=== PATIENT | female | born 1940 | race Hispanic/Latino ===

== ENCOUNTER 2017-08-13 17:43 | Emergency (ER) | payer OTHER, MEDICARE ==
[2017-08-13] MEDS ORDERED: ONDANSETRON HCL MDV 20ML 2 MG/ML VIAL ONE (18:26)
[2017-08-13] MEDS ORDERED: SODIUM CHLORIDE 0.9% 1000ML 1,000 ML IV ONE (18:27)
[2017-08-13] MEDS ORDERED: KETOROLAC TROMETHAMINE 15MG/ML ONE (18:27)
[2017-08-13 18:29] LABS: BASOPHILS % (AUTO) 0.4 % (0.0-5.0); EOSINOPHILS % (AUTO) 1.5 % (0.0-8.0); HEMATOCRIT 40.1 % (36-48); LYMPHOCYTES % (AUTO) 24.1 % (21.0-51.0); MEAN CORPUSCULAR HEMOGLOBIN 32.9 pg (27.0-33.0); MEAN CORPUSCULAR HGB CONC 34.4 g/dL (32.0-36.0); MEAN CORPUSCULAR VOLUME 95.8 fL (79-99); MONOCYTES % (AUTO) 8.8 % (3.0-13.0); NEUTROPHILS % (AUTO) 65.2 % (40.0-77.0); PLATELET COUNT (AUTO) 167 K/uL (130-400); RED BLOOD CELL COUNT(AUTO) 4.19 MIL/uL (4.00-5.50); WHITE BLOOD COUNT (AUTO) 9.4 K/uL (4.8-10.8)
[2017-08-13 18:40] LABS: CREATININE 0.8 mg/dL (0.5-1.5); POTASSIUM 3.7 mmol/L (3.5-5.1)
[2017-08-13 18:41] LABS: APPEARANCE,URINE Clear (CLEAR); BILIRUBIN,URINE Negative (NEGATIVE); COLOR,URINE Yellow (YELLOW); GLUCOSE, URINE (UA) Negative (NEGATIVE); KETONES,URINE Negative (NEGATIVE); LEUKOCYTE ESTERASE ,URINE Small (NEGATIVE); NITRATE,URINE Negative (NEGATIVE); OCCULT BLOOD,URINE Moderate (NEGATIVE); PROTEIN,URINE Negative (NEGATIVE)
[2017-08-13 18:44] LABS: ALBUMIN 3.6 g/dL (3.5-5.0); BILIRUBIN,DIRECT 0.1 mg/dL (0.0-0.3); BILIRUBIN,TOTAL 0.4 mg/dL (0.2-1.0); TOTAL PROTEIN, SERUM 7.2 g/dL (6.0-8.3)
[2017-08-13 19:01] LABS: INR 0.98 (0.85-1.15); PARTIAL THROMBOPLASTIN TIME 24.9 SEC (26.3-35.5); PROTHROMBIN TIME 10.3 SEC (9.6-11.6)
[2017-08-13 19:36] LABS: BACTERIA,URINE Rare /HPF (None Seen); SQUAMOUS EPITHELIAL CELL,UR Rare /HPF (0-2)
== END 2017-08-13 21:32 | disposition home or self-care (01) ==
LOC: EDH 17:43
DX: R10.13 Epigastric pain (principal); R63.0 Anorexia; R11.0 Nausea
CPT/HCPCS: 36415; 74176; 80048; 80076; 81001; 82550; 83690; 84484; 85025; 85610; 85730; 93005; 96361; 96374; 96375; 99285; J1885; J7030

== ENCOUNTER → 2020-01-29 | Outpatient (CLI) | payer OTHER, MEDICARE ==
--- NOTE | 2020-01-29 11:45 | NUR ---
U/S GD RT BREAST CYST ASPIRATION PROCEDURE PERFORMED BY DR Rand ESPINOZA. PUNCTURE SITE RT BREAST AND PATIENT TOLERATED PROCEDURE WELL. SPECIMEN COLLECTED AND SENT TO LAB. END OF PROCEDURE AT 1110. BIOPSY NEEDLE REMOVED AND DRESSING APPLIED. NO BLEEDING NOTED. DISCHARGE INSTRUCTIONS GIVEN TO PATIENT AND VERBALIZED UNDERSTANDING. DISCHARGED VIA AMBULATION AT 1145. AAO X3 WITH NO C/O PAIN. U/S OF LT BREAST DONE AND PENDING RESULTS.
== END | disposition home or self-care (01) ==
LOC: RAH 08:51
PROVIDERS: ATTEND Internal Medicine
DX: N60.01 Solitary cyst of right breast (principal); N63.10 Unspecified lump in the right breast, unspecified quadrant; N60.02 Solitary cyst of left breast; N63.20 Unspecified lump in the left breast, unspecified quadrant; K21.9 Gastro-esophageal reflux disease without esophagitis; J30.9 Allergic rhinitis, unspecified; G40.909 Epilepsy, unspecified, not intractable, without status epilepticus; M81.0 Age-related osteoporosis without current pathological fracture; Z86.19 Personal history of other infectious and parasitic diseases; Z90.49 Acquired absence of other specified parts of digestive tract; Z98.42 Cataract extraction status, left eye; Z98.41 Cataract extraction status, right eye
CPT/HCPCS: 19000; 76641

== ENCOUNTER → 2020-10-08 | Outpatient (CLI) | payer OTHER, MEDICARE | END | disposition home or self-care (01) | LOC: RAH 13:32 | PROVIDERS: ATTEND Student in an Organized Health Care Education/Training Program | DX: R92.2 Inconclusive mammogram (principal); N60.01 Solitary cyst of right breast; N60.02 Solitary cyst of left breast; N63.10 Unspecified lump in the right breast, unspecified quadrant; N63.20 Unspecified lump in the left breast, unspecified quadrant ==

== ENCOUNTER → 2020-12-02 | Outpatient (CLI) | payer OTHER, MEDICARE | END | disposition home or self-care (01) | LOC: RAH 11:13 | PROVIDERS: ATTEND Student in an Organized Health Care Education/Training Program | DX: N60.01 Solitary cyst of right breast (principal) | CPT/HCPCS: 76641 ==

== ENCOUNTER → 2021-01-27 | Outpatient (CLI) | payer OTHER, MEDICARE ==
[2021-01-27 10:36] LABS: INR 1.03 (0.85-1.15); PROTHROMBIN TIME 11.2 SEC (9.6-11.6)
[2021-01-27 10:37] LABS: PARTIAL THROMBOPLASTIN TIME 26.4 SEC (26.3-35.5)
== END | disposition home or self-care (01) ==
LOC: RAH 09:32
PROVIDERS: ATTEND Student in an Organized Health Care Education/Training Program
DX: N63.15 Unspecified lump in the right breast, overlapping quadrants (principal); Z20.822 Contact with and (suspected) exposure to COVID-19; Z79.01 Long term (current) use of anticoagulants
CPT/HCPCS: 19083; 36415; 85610; 85730; A4215 ×3

== ENCOUNTER → 2021-02-10 | Outpatient (CLI) | payer OTHER, MEDICARE | END | disposition home or self-care (01) | LOC: RAH 12:23 | PROVIDERS: ATTEND Nurse Practitioner Family | DX: M47.812 Spondylosis without myelopathy or radiculopathy, cervical region (principal) | CPT/HCPCS: 72040 ==

== ENCOUNTER → 2021-08-25 | Outpatient (CLI) | payer OTHER, MEDICARE | LOC: RAH 09:06 | PROVIDERS: ATTEND Student in an Organized Health Care Education/Training Program | DX: D48.61 Neoplasm of uncertain behavior of right breast (principal); N63.15 Unspecified lump in the right breast, overlapping quadrants | CPT/HCPCS: 76641; 77066 ==

== ENCOUNTER → 2022-03-13 | Outpatient (CLI) | payer OTHER, MEDICARE | END | disposition home or self-care (01) | LOC: RAH 09:28 | PROVIDERS: ATTEND Student in an Organized Health Care Education/Training Program | DX: D24.1 Benign neoplasm of right breast (principal); N60.01 Solitary cyst of right breast | CPT/HCPCS: 76641 ==

== ENCOUNTER → 2022-08-28 | Outpatient (CLI) | payer OTHER, MEDICARE | END | disposition home or self-care (01) | LOC: RAH 10:26 | PROVIDERS: ATTEND Student in an Organized Health Care Education/Training Program | DX: D48.61 Neoplasm of uncertain behavior of right breast (principal); D24.1 Benign neoplasm of right breast | CPT/HCPCS: 77066 ==